=== PATIENT | male | born 1940 | race Caucasian/White ===

== ENCOUNTER 2024-03-12 10:42 | Emergency (ER) | payer MEDICARE, BC, SELFPAY ==
[2024-03-12 10:56] VITALS: BP 148/81; PULSE 64; RESP 18; TEMP 36.5; O2SAT 96; BMI 25.8
--- NOTE | 2024-03-12 11:28 | CRLHL7_ITS ---
For Patients: As a result of the Century Cures Act, medical imaging exams and procedure reports are released immediately into your electronic medical record. You may view this report before your referring provider. If you have questions, please contact your health care provider. INDICATION: Injury COMPARISON: 03/08/2020 TECHNIQUE: Single view of the chest and three views of the right ribs FINDINGS: No substantial pleural effusion. No definite focal pulmonary consolidation. A 13 millimeter nodular opacity projects over the left lower lung zone. Normal heart size. Calcified mildly tortuous thoracic aorta. There are osseous degenerative changes. No acute displaced rib fracture is detected. Surgical clips project over the right upper abdominal quadrant. IMPRESSION: No acute displaced rib fracture is detected. A 13 millimeter nodular opacity projects over the left lower lung zone, recommend further evaluation with a nonemergent low-dose noncontrast CT thorax. Dictated by Niko Xavier MD @ 03/12/2024 12:16:51 PM (Electronically Signed)
--- NOTE | 2024-03-12 11:29 | ED.GENADULT ---
HPI - General Adult General Chief complaint: Fall/Minor Trauma Stated complaint: Fell yesterday, chest pain Time Seen by Provider: 03/12/24 11:21 History of Present Illness HPI narrative: This 83-year-old male comes in because of an injury that occurred yesterday. He states that he fell onto a roller hitting his right anterior chest. He did not hit his head or have loss of consciousness. He had distinct pain in this area immediately and now reports generalized discomfort but pain that is much worse when coughing or performing certain movements. He arrives here with normal vital Related Data Home Medications ?Medication ?Instructions ?Recorded ?Confirmed famotidine 40 mg tablet 40 mg PO QDAY 07/11/22 03/12/24 losartan 50 mg tablet 50 mg PO DAILY 07/11/22 03/12/24 simvastatin 20 mg tablet 20 mg PO QHS 07/11/22 03/12/24 Previous Rx's ?Medication ?Instructions ?Recorded ketorolac 10 mg tablet 10 mg PO Q8H 5 days #15 tabs 03/12/24 Allergies Allergy/AdvReac Type Severity Reaction Status Date / Time No Known Drug Allergies Allergy Verified 03/12/24 11:02 Review of Systems Status of ROS: Reports: 10 or more systems reviewed and unremarkable except as noted in History and below Narrative: Constitutional: No fevers, no weight gain or loss. Eyes: No discharge. No vision changes. HENT: No congestion, no sore throat, no ear pain. Cardiovascular: No palpitations. Respiratory: No shortness of breath, no wheezes, no cough. Gastrointestinal: No abdominal pain, no vomiting, no diarrhea. Genitourinary: No dysuria, no hematuria. Musculoskeletal: Normal range of motion. Skin: No rashes, no pruritis. Neurological: No dizziness, weakness, sensory change, speech change. Endo/Heme/Allergies: No bruising or bleeding. No polydipsia. Pysch: no suicidality, no anxiety, no insomnia. All other systems reviewed and are negative. [facility] Medical History (Updated 03/12/24 @ 12:31 by Jer Salcedo MD) High cholesterol ?E78.00 - Pure hypercholesterolemia, unspecified (ICD-10) Hypertension ?I10 - Essential (primary) hypertension (ICD-10) Surgical History (Updated 07/10/22 @ 15:02 by Ally R Krenske ~ RN, RN) History of cholecystectomy ?Z90.49 - Acquired absence of other specified parts of digestive tract (ICD-10) Hx laparoscopic cholecystectomy (03/18/13) ?Z90.49 - Acquired absence of other specified parts of digestive tract (ICD-10) H/O hernia repair (05/05/18) ?Z98.890 - Other specified postprocedural states (ICD-10) ?Z87.19 - Personal history of other diseases of the digestive system (ICD-10) 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) ?Z96.652 - Presence of left artificial knee joint (ICD-10) Social History (Updated 07/11/22 @ 10:41 by Jesica Garcia ~ [facility], [facility]) Narrative: enjoys polJoules Clothing dancing Smoking Status: Never smoker Do you use any of these nicotine containing products: None Second hand tobacco smoke exposure: No Are you now , , , , never or living with a partner: Social isolation score (0-1 are the most socially isolated patients): 1 Exam Narrative: Exam Narrative: Constitutional: Well-developed, well-nourished, no acute distress. HEENT: Normocephalic, atraumatic. Neck: Normal range of motion. Nontender. Supple. Heart: Regular. No murmurs. Normal rate. Intact distal pulses. Lungs: Clear to auscultation. No wheezes, rhonchi, or rales. Chest: No external sign of injury or bruising. Distinct tenderness in the right anterior ribs. Abdomen: Normal bowel sounds. Nontender. No rebound tenderness. Genitalia: Deferred. Back: No midline tenderness. Normal range of motion. Extremities: Normal range of motion. No injury. Skin: Intact. No rash. Warm. No erythema or pallor. Neurologic: No altered sensation. No weakness. Alert and oriented. Psychiatric: No suicidality. No anxiety or depression. No insomnia. Nursing notes and vitals signs are reviewed. Const: Vital Signs, click to edit/add: Vital Signs - 24 hr 03/12/24 10:56 Temperature 97.7 F Pulse Rate [Right Pulse Oximeter] 64 Respiratory Rate 18 Blood Pressure [Ri ght Upper Arm] 148/81 H Pulse Oximetry 96 Oxygen Delivery Me thod Room Air Course Vital Signs Vital signs: Initial Vital Signs Temperature 97.7 F 03/12/24 10:56 Temperature Source Temporal Artery Scan 03/12/24 10:56 Pulse Rate 64 03/12/24 10:56 Pulse Rhythm Regular 03/12/24 10:56 Pulse Strength 3+ Normal 03/12/24 10:56 Respiratory Rate 18 03/12/24 10:56 Blood Pressure 148/81 H 03/12/24 10:56 Blood Pressure Mean 103 03/12/24 10:56 Blood Pressure Position Sitting 03/12/24 10:56 Pulse Oximetry 96 03/12/24 10:56 Oxygen Delivery Method Room Air 03/12/24 10:56 Vital Signs Temperature 97.7 F 03/12/24 10:56 Pulse Rate 64 03/12/24 10:56 Respiratory Rate 18 03/12/24 10:56 Blood Pressure 148/81 H 03/12/24 10:56 Pulse Oximetry 96 03/12/24 10:56 Oxygen Delivery Method Room Air 03/12/24 10:56 Temperature 97.7 F 03/12/24 10:56 Pulse Rate 64 03/12/24 10:56 Respiratory Rate 18 03/12/24 10:56 Blood Pressure 148/81 H 03/12/24 10:56 Pulse Oximetry 96 03/12/24 10:56 Oxygen Delivery Method Room Air 03/12/24 10:56 Medical Decision Making MDM Narrative Medical decision making narrative: This patient comes in for evaluation of a rib injury that occurred yesterday. Chest x-ray with right rib detail is obtained and shows no evidence of fracture or pneumothorax. There is an incidental finding of a 13 mm nodule in the left lower long. I did inform the patient regarding this and recommended follow-up imaging in the future. The patient is okay to be discharged home. I did provide a prescription for Toradol. Imaging Data Chest x-ray: Radiologist's impression: No acute displaced rib fracture is detected. A 13 millimeter nodular opacity projects over the left lower lung zone, recommend further evaluation with a nonemergent low-dose noncontrast CT thorax. ECG Data Attestation: I personally reviewed and interpreted this ECG as follows: Interpretation: Normal sinus rhythm. Rate is 59 beats per minute. There are no ST or T-wave abnormalities. Discharge Plan Discharge Clinical Impression: Contusion of rib on right side Additional Instructions: Take medication as needed and indicated. Increase activity as tolerated. Follow up with MD return if worsening. Prescriptions: New ketorolac 10 mg tablet 10 mg PO Q8H 5 Days Qty: 15 0RF No Action losartan 50 mg tablet 50 mg PO DAILY simvastatin 20 mg tablet 20 mg PO QHS famotidine 40 mg tablet 40 mg PO QDAY Follow Up/Referrals: Jacqueline Perea DO [Primary Care Provider] - Stand Alone [facility]
--- OUTSIDE RECORDS SUMMARY | 2024-03-12 11:38 | XMS_ITS | Continuity of Care Document ---
Author Name [facility] Organization [facility] Care Team Providers Care Chef Assistant Name Role Phone [facility] Unavailable Unavailable Problems Combined list of problems from Department of [facility] and [facility] facilities. It does not include entries that were removed or entered in error. 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 Medication Details Route Status Patient Instructions Prescription Expires Prescription Number Last Dispense Date Ordering Provider Order Date Order Qty Source CARBOXYMETH YLCELLULOSE NA 0.5% SOLN,OPH INSTILL 1 DROP IN BOTH EYES FOUR TIMES A DAY NEEDED FOR DRY EYES OPHTHA LMIC ACTIVE 10/22/2024 [id number] DESIREE GALEANO 2023 15 [facility] MULTIVIT/OP HTH AREDS2/LUTE IN/ZEAXANTH IN CAP/TAB TAKE 1 CAP/TAB BY MOUTH TWICE A DAY FOR EYE HEALTH ORAL ACTIVE 10/22/2024 [id number] DESIREE GALEANO 2023 120 [facility] MULTIVIT/OP HTH AREDS2/LUTE IN/ZEAXANTH IN CAP/TAB TAKE 1 CAP/TAB BY MOUTH TWICE A DAY FOR EYE HEALTH ORAL DISCONT INUED 10/13/2023 [id number] DESIREE GALEANO 2022 240 [facility] Immunizations Combined list of available immunizations from the Department of [facility] and [facility] facilities. Immunization Series Date Given Administered By Site Reaction Lot Number CVX Code Drug Assisted Living Director Status Comments Source ZOSTER RECOMBINANT 2 2022 ARNALDO DUNBAR LEFT DELTO ID [id number] 187 complet ed @@ ENTER DILUENT LOT# HERE KWAKU REINA COVID-19 (MODERNA), MRNA, LNP-S, PF, 50 MCG/0.5 ML (AGES 12+ YEARS) 2022 312 complet ed [facility] RSV, RECOMBINANT, PROTEIN SUBUNIT RSVPREF, ADJUVANT RECONSTITUTED , 0.5 ML, PF 2022 303 complet ed [facility] INFLUENZA VACCINE, QUADRIVALENT, ADJUVANTED 2022 205 complet ed [facility] TDAP 2022 115 complet [facility] COVID-19 (PFIZER), MRNA, LNP-S, BIVALENT, PF, 30 MCG/0.3 ML DOSE 2021 300 complet ed [facility] INFLUENZA VACCINE, QUADRIVALENT, ADJUVANTED 2021 205 complet ed [facility] COVID-19 (PFIZER), MRNA, LNP-S, PF, 30 MCG/0.3 ML DOSE 2020 208 complet ed [facility] INFLUENZA VACCINE, QUADRIVALENT, ADJUVANTED 2020 205 complet ed [facility] COVID-19 (PFIZER), MRNA, LNP-S, PF, 30 MCG/0.3 ML DOSE 2020 208 complet ed [facility] COVID-19 (120 Sports), MRNA, LNP-S, PF, 30 MCG/0.3 ML DOSE 2020 208 complet ed [facility] INFLUENZA VACCINE, QUADRIVALENT, ADJUVANTED 2019 205 complet ed [facility] ZOSTER RECOMBINANT 2019 187 complet ed [facility] INFLUENZA, TRIVALENT, ADJUVANTED 2018 168 complet ed [facility] INFLUENZA, TRIVALENT, ADJUVANTED 2017 168 complet ed [facility] INFLUENZA, TRIVALENT, ADJUVANTED 2016 168 complet ed [facility] INFLUENZA, HIGH DOSE SEASONAL 2014 135 complet ed [facility] PNEUMOCOCCAL CONJUGATE PCV 13 2014 133 complet ed [facility] INFLUENZA, HIGH DOSE SEASONAL 2013 135 complet ed [facility] INFLUENZA, SEASONAL, INJECTABLE 2012 141 complet ed [facility] INFLUENZA, SEASONAL, INJECTABLE 2010 141 complet ed [facility] ZOSTER LIVE 2010 121 complet ed [facility] TDAP 2010 115 complet ed [facility] ZOSTER LIVE 2010 121 complet ed [facility] PNEUMOCOCCAL POLYSACCHARID E PPV23 2009 33 complet ed [facility] NOVEL INFLUENZA-H1N 1-09 2009 127 complet ed [facility] INFLUENZA, SEASONAL, INJECTABLE 2007 141 complet ed [facility] Encounters Combined list of: 1) Encounters from Department of [facility] facilities going back up to thelast 18 months. 2) Encounters from the Department of [facility] facilities going back up to 280 months. Location Location Details Encounter Type Encounter Number Reason For Visit Attending Provider ADM Date DC Date Status Disposition Source [place] [facility] OFFICE O/P EST MOD 30-39 MIN [id number] Diagnos is: ICD-10- CM H35.371 Puckeri ng of macula, right eye<br/ > FROYLAN,STEW ART J 10/12 [facility] [place] [facility] Outpatient Encounter [id number] 02/04 [facility] [place] [facility] Outpatient Encounter [id number] 02/20 [facility] [place] [place] ADMIN [id number] Diagnos is: ICD-10- CM Z23 Encount er for immuniz ation<b r/> POPLIN,BONNIE INE D 02/26 [facility] Outpatient Encounter [id number] 03/12 [facility] [place] [facility] OFF[facility] O/P EST MOD 30 MIN [id number] Diagnos is: ICD-10- CM H35.341 Macular cyst, hole, or pseudoh ole, right eye<br/ > LAURA GALEANO 10/21 [facility]
--- OUTSIDE RECORDS SUMMARY | 2024-03-12 11:39 | XMS_ITS | Clinical Summary ---
Author Organization [facility] Address [place], [place] [address] Care Team Providers Care Academic Computing Director Name Role Phone Jacqueline Perea Primary Care Provider Allergies No known active allergies Medications Medication Sig Dispensed Refills Start Date End Date Status multivitamin (MVI) tablet Take 1 tablet by mouth once daily. 0 07/17/2012 Active brimonidine (ALPHAGAN) 0.2 % ophthalmic solution 12/19/2017 Activ e calcium carbonate (CALTRATE) 600 mg calcium (1,500 mg) tablet Take 1 Tablet (600 mg) by mouth 2 times daily with meals. 180 Tablet 3 09/23/2020 Active fluocinonide 0.05 TOPICAL (LIDEX) 0.05 % external solutionIndications: Dermatitis Apply topically to affected area(s) two times daily. Apply to scalp as needed 60 mL 02/04/2023 Active triamcinolone (ARISTOCORT) 0.1 % ointmentIndications: Dermatitis Apply topically to affected area(s) two times daily. 30 g 1 02/04/2023 Active carbamide peroxide (DEBROX) 6.5 % otic solutionIndications: Impacted cerumen of right ear Place 5 Drops into right ear one time if needed (Use as needed) for up to 1 dose. 15 mL 02/04/2023 Active doxycycline monohydrate 100 mg capsule TAKE ONE CAPSULE BY MOUTH TWICE A DAY FOR 21 DAYS 11/06/2023 Active pantoprazole (PROTONIX) 20 mg tabletIndications:Ot her acute gastritis without hemorrhage TAKE 1 TABLET (20 MG) BY MOUTH ONCE DAILY BEFORE A MEAL. 30 Tablet 11/11/2023 Active losartan (COZAAR) 50 mg tabletIndications:HT N (hypertension) Take 1 Tablet (50 mg) by mouth once daily. 90 Tablet 4 12/02/2023 Active sildenafiL, pulm.hypertension, (REVATIO) 20 mg tabletIndications:Er ectile dysfunction of organic origin TAKE 2 TO 4 TABLETS 30 MINUTES PRIOR TO INTERCOURSE 16 Tablet 2 12/02/2023 Active simvastatin (ZOCOR) 20 mg tabletIndications:Mi xed hyperlipidemia Take 1 Tablet (20 mg) by mouth at bedtime. 90 Tablet 4 12/02/2023 Active famotidine (PEPCID) 40 mg tabletIndications:Ot her acute gastritis without hemorrhage,Chronic throat clearing Take 1 Tablet (40 mg) by mouth once daily. 90 Tablet 3 12/05/2023 Active Active Problems Problem Noted Date Diagnosed Date Encounter for immunization 09/10/2023 Puckering of macula, right eye 09/10/2023 Melanoma in situ, unspecified site 02/06/2023 S/P knee replacement 06/06/2012 Overview (06/06/2012): L Adenomatous colon polyp 05/12/2012 Overview (06/28/2021): Colonoscopy 04/2012 polyp repeat in 5 years Colonoscopy 05/2021 14mm TA, repeat in 3 years HTN (hypertension) 05/11/2011 Elevated prostate specific antigen (PSA) 011 Mixed hyperlipidemia 08/08/2010 Resolved Problems Problem Noted Date Diagnosed Date Resolved Date skilled nursing (current) use of anticoagulants 06/09/2012 06/27/2012 Acute gastritis without mention of hemorrhage 08/09/19 11 09/15/2014 Encounters Date Type Department Care Team Description 03/12/2024 Nurse Triage [facility] [address] [place] [address] Jacqueline Perea, Chest Injury 01/24/2024 Telephone [facility] [address] [place] [address] Jacqueline Perea, BP READINGS from Last 3 Months Immunizations Name Administration Dates Next Due COVID-19 vaccine (Spinomix-Bio NTech 30mcg/0.3mL) 12YO+ BIVALENT PF, MDV 03/07/2022 COVID-19 vaccine (Spinomix-Bio NTech 30mcg/0.3mL) PF, MDV 07/19/2020,06/28/2020 Influenza A (H1N1), Inactiva nini (Age >=3 Years) 05/28/2009 Influenza, High-dose Inactivated 04/06/2015,01/28 Influenza, IIV3 (Age >=3 years) 05/16/2012,04/18,02/06/2008 Influenza, Inactivated AIIV4 (Age 65+ Years) Preserv Free 02/04/2023,03/07/2022,12/28/2020,02/07 Influenza, Inactivated IIV3 (Age 65+ Years) Preserv Free 04/09/2019,02/19/2018,01/25/2017 Pneumococcal Poly,23-Valent (Pneumovax) 04/11/2010 Pneumococcal conj 13-Valent (Prevnar 13) 04/06/2015 RSV, Recombinant ADJ Reconst ituted (Arexvy 120MCG/0.5mL) 02/20/2023 Tdap 02/04/2023,12/22/2010 Zoster (Shingrix-RZV, recombinant) 02/26/2023, Zoster (Zostavax-ZVL, live) 04/18/2011, 1 Family History Medical History Relation Name Comments Other Other No significant hx. Relation Name Status Comments Other Social History Tobacco Use Types Packs/Day Years Used Date Smoking Tobacco: Never Smokeless Tobacco: Never Tobacco Cessation:Counseling Given: Yes Alcohol Use Standard Drinks/Week Comments No 0 (1 standard drink = 0.6 oz pur e alcohol) PHQ-2 Answer Date Recorded PHQ-2 TOTAL SCORE 2 12/02/2023 Social Connections Answer Date Recorded Frequency of Communication with Friends and Fami ly 0 02/04/2023 Financial Resource Strain Answer Date R ecorded Difficulty of Paying Living Expenses 3 02/04/2023 Difficulty of Paying Living Expenses Not on file 02/04/2023 Food Insecurity Answer Date Recorded Worried About Running Out of Food in the Last Ye ar 1 02/04/2023 Transportation Needs Answer Date Record ed Lack of Transportation (Medical) 1 02/04/2023 Housing Stability Answer Date Recorded Unable to Pay for Housing in the Last Year 1 02/04/2023 Sex and Gender Information Value Date Recorded Sex Assigned at Not on file Gender Identity Not on file Sexual Orientation Not on file Obstetrics History Last Filed Vital Signs Vital Sign Reading Time Taken Comments Blood Pressure 147/78 12/02/2023 9:05 AM CDT Pulse 67 12/02/2023 9:05 AM CDT Temperature 36.6 ??C (97.8 ??F) 09/10/2023 9:59 AM CD T Respiratory Rate 12 03/29/2021 9:12 AM DIRECTOR OF MEDICAL SERVICES Oxygen Saturation 96% 12/02/2023 9:05 AM CDT Inhaled Oxygen Concentration - - Weight 83.2 kg (183 lb 6.4 oz) 12/02/2023 9:05 AM CDT Height 171.5 cm (5' 7.5) 12/02/2023 9:05 AM CDT Body Mass Index 28.3 12/02/2023 9:05 AM CDT Plan of Treatment Health Maintenance Due Date Last Done Comments COVID-19 vaccine series ( season) 2023 02/20/2023, 03/07/2022, 01/30/2021, Additional history exists Influenza for age 65+ 12/29/2023 02/04/2023 , 03/07/2022, 12/28/2020, Additional history exists BMI (ht and wt on same day) for age 18+ 12/01/2024 12/02/2023, 09/10/2023, 10/31/2022, Additional history exists Depression screening for age 12+ 12/02/2024 12/03/2023, 12/02/2023, 10/31/2022, Additional history exists Medicare Wellness for age 65+ 12/02/2024, 10/31/2022, 10/24/2020, Additional history exists Tetanus booster 02/04/2033 02/04/2023, 11/28, 12/22/2010 Pneumococcal series for age 65+ Completed 5, 04/11/2010 Tdap Completed 02/04/2023, 12/22/2010 RSV vaccine for adults or Completed 02/20/2023 Zoster (shingles) series for age 50+ Completed 02/26/2023, 11/10/2019, 04/18/2011, Additional history exists Advance Directives Documents on File Type Date Recorded Patient System Development Engineer Expl anation Healthcare Directive 06/08/2013 2:25 PM AM Red ODONNELL, 05/22/13 Care Teams Academic Computing Director Relationship Specialty Start Date End Date Jacqueline Perea DO [address] [place] [address] PCP - General Family Practice 12/22/10
--- OUTSIDE RECORDS SUMMARY | 2024-03-12 11:39 | XMS_ITS | Data Portability ---
Author Organization [place] [facility] Address [address] [place] [address] Care Team Providers Care Pest Control Service Sales Agent Name Role Phone EILEEN ENRIQUEZ Primary Care Provider [phone] Assessment Encounter Date Assessment Date Assessment LastModified by Organization Details LastModified Time 03/29/2022 03/29/2022 81M with elevated PSA His PSA has been elevated to this range for >10 years. He has some variability in his PSAs. ANIBAL shows enlarged prostate and no nodules. Due to overall PSA stability and large prostate on exam, my level of concern is low for a high risk cancer. Recommend annual PSA as long as he has realistic 10 yrs life expectancy Can check PSA with PMD in [place], refer back to Urology if PSA> 10 Reviewed prior urology notes and labs sindi Not available 03/29/2022 12:11:13 Plan of Treatment Reminders Order Date Submit Date Provider Last Modified By Organization Details Last Modified Time Details Appointments None record ed. Lab None record ed. Referral None record ed. Procedures None record ed. Surgeries None record ed. Imaging None record ed. Medication Orders None record ed. Patient TargetsNo targets recorded. Patient InstructionsNo instructions recorded. Reason for Referral None Reported. Results Created Date Observation Date Name Description Value Unit Range Abnormal Flag Note LastModifiedBy Organization Detail LastModifiedTime 03/29/20 22 03/29/2022 bladd er scan (PROC ) No observ ation record ed. BARCODE Not Available 2021 17:38:42 Result Notes None recorded. Problems Name Problem SNOMED Code Status Onset Date Resolution Date Notes Provider Name and Address Organization Details Recorded Time Prostate specific antigen above reference range 428854140 Active 022 Ori pro MD, PHD [address] [facility],[place] [address], [place], [address], [place] [facility] 2 12:09:08 Problem Notes None recorded. Procedures Surgical History Date Name Laterality Status Provider Name and Address Organization Details Recorded Time Bladder Scan completed Jim Das [facility] 03/29/2022 11:51:29 0 Us urine capacity measure completed Not Available [facility] 10/08/2019 20:51:16 5 Prp i/ally init reduc >5 yr completed Not Available [facility] 10/08/2019 20:51:16 Imaging Results Imaging Date Name Status LastModified by Organiz ation Details LastModified Time 03/29/2022 bladder scan (PROC) completed BARCODE Information not available 03/29/2022 17:38:42 Procedure Notes None recorded. Medical Equipment None Reported. Allergies No known drug allergies Medications Name Sig Start Date Stop Date Status Note LastModified by Organization Details LastModified Time losartan 50 mg tablet TAKE 1 TABLET (50 MG) BY MOUTH ONCE DAILY. active Not Available Not Available No t Available famotidine 40 mg tablet TAKE ONE TABLET BY MOUTH ONCE DAILY active Not Available Not Available No t Available pantoprazol e 20 mg tablet,margarita yed release TAKE 1 TABLET (20 MG) BY MOUTH TWO TIMES DAILY BEFORE MEALS. active Not Available Not Available No t Available simvastatin 20 mg tablet TAKE ONE TABLET BY MOUTH AT BEDTIME active Not Available Not Available No t Available fluticasone propionate 50 mcg/actuati on nasal spray,suspe nsion INHALE 2 SPRAYS INTO AFFECTED NOSTRIL(S ) ONCE DAILY. active Not Available Not Available No t Available peg 3350-electr olytes 236 gram-22.74 gram-6.74 gram-5.86 gram solution MIX DRECTED AND DRINK 3 QUARTS THE DAY PRIOR TO COLONOSCO PY AND 1 QUART 6 HOURS PRIOR TO COLONOSCO PY APPOINTME NT. 03/29 completed Not Available Not Available Not Available Vitals Date Recorded Body height Body mass index (BMI) Body weight Provider Name and Address Organization Details Last Updated DateTime 03/29/2022 172.72 cm 26.6 kg/m2 84755.66 g Jim Pippa [place] [facility] 03/29/2022 11:41:33 Social History Question Answer Notes LastModified by Organizat ion Details LastModified Time Tobacco Smoking Status Never Smoker Not Available [facility] 10/08/2019 02:16:52 What Is Your Level Of Alcohol Consumption? Occasional Information not available 03/29/2022 What Is Your Level Of Caffeine Consumption? Moderate Information not available 03/29/2022 Are You Currently Employed? No Information not available 03/29/2022 Recreational Drug Use No Information not available 03/29/2022 Marital Status [email or web address] Informati on not available 10/08/2019 What Was The Date Of Your Most Recent Tobacco Screening? 03/29/2022 Information not available 03/29/2022 What Is Your Relationship Status? Information not available 03/29/2022 Do You Use Any Illicit Or Recreational Drugs? No Information not available 03/29/2022 Has Tobacco Cessation Counseling Been Provided? No Information not available 03/29/2022 Do You Or Have You Ever Used Any Other Forms Of Tobacco Or Nicotine? No Information not available 03/29/2022 Sex: Unknown Functional Status None recorded. Mental Status None recorded. Family History Nothing Reported. Medical History No medical history recorded. Past Encounters Encounter ID Performer Location Encounter Start Date Encounter Closed Date Diagnosis/Indication Diagnosis SNOMED-CT Code Diagnosis ICD10 Code [id number] Ori beauchamp MD, PHD [facility] [address] [id number] 03/29/2022 10:57:14 04/02/2022 11:34:13 Prostate specific antigen above reference range 382318675 R97.20 Health Concerns Section Related Observation LastModified by Organization Detai ls LastModified Time None Recorded Concern Status LastModified by Organization Details LastModified Time None Recorded Advance Directives Directive None Recorded Payers Encounter Date Sequence Insurance Name Policy Number Policy Chaney Covered Member ID Chaney Member ID Guarantor Name 03/29/2022 1 [place] [employer] Isaac Montenegro [id number] Isaac Montenegro 03/29/[address] [facility] [id number] Isaac Montenegro [id number] Isaac Mcgrath Lan Notes Date Note Type Note Provider Name and Address Organization Details Recorded Time 03/29/2022 text/html 81M with elevated PSA Had biopsy by Dr Bess in 2005- [facility]. He denies any recent UTIs, hematuria, or stones. PVR today 2 mL LUTS: FOS ok, noct x 1 ED: [] PSA Vfnuoxi53/9/22: 8.512/ 7.7912/01/11 7.563/19/04 7.34 PMH: HTN, HLPSH: Social Hx:Tob: neverEtOH: denies Occ: retired FamHx:Breast ca- daughterPCa- none Ori Heck MD, PHD [address] [facility],[address], [place], [address], [facility] 03/29/2022 12:11:34
== END 2024-03-12 12:39 | disposition home or self-care (01) ==
PROVIDERS: Emergency Provider Emergency Medicine Emergency Medical Services; PCP Family Medicine
DX: S20.211A Contusion of right front wall of thorax, initial encounter (principal); W01.10XA Fall on same level from slipping, tripping and stumbling with subsequent striking against unspecified object, initial encounter
CPT/HCPCS: 71101; 93005; 97140; 99284

== ENCOUNTER 2024-03-17 08:15 | Outpatient (RCR) | payer MEDICARE, BC, SELFPAY ==
--- NOTE | 2024-02-03 09:14 | PT.OPEX ---
PT [facility] Outpatient Eval PT [facility] Outpatient Eval Start: 02/03/24 07:08 Freq: Status: Active Protocol: Document 02/03/24 07:08 MLS (Rec: 02/03/24 09:12 MLS [id number]) E-signed By Rosalind Soria DPT Physical Therapy Outpatient Evaluation Insurance Information Recert Due Date 05/02/24 Insurance Name Medicare B Medical Diagnosis M70.71 other bursitis of hip, right hip M70.72 other bursitis of hip, left hip Bilateral hip bursitis Treating Diagnosis Bilateral hip bursitis, left worse than right Referring MD Dr. Villela Subjective Subjective Patient is a 83 year old male who presents to physical therapy with signs and symptoms consistent with bilateral hip pain. He states that the pain is worse worse on the left hip. He states that it started about a couple months ago. 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 He uses a stationary bike and does a lot of yardwork regularly. He has not had a cortisone shot. Aggravating factors include: polka dancing, standing, walking, and sitting. Alleviating factors include: nothing at this time. Significant past medical history includes left knee TKA . Patient would like to achieve less pain through physical therapy sessions. 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 Precautions Weight Bearing Status Full Weight Bearing Therapy Limitations/Systems Review Not Limited Objective Other/Pertinent Objective KNEE ROM Grossly tested WNL B HIP ROM Flexion: 95 L, 95 R Internal Rotation: 10 L, 15 R External Rotation 30 L, 30 R Abduction 35 L, 35 R LLE MMT: Hip flexion: R 4/5 L 4/5 Hip abduction: R 4/5 L 4/5 Hip extension: R 4/5 L 4/5 Knee flexion: R 5/5 L 5/5 Knee extension: R 5/5 L 5/5 SPECIAL TEST Valgus Test: negative Varus Test: negative -Zuleta Compression: negative -Hip quadrant test: negative -SARINA: positive on right for pain -FADIR: negative -Trochanteric Bursitis Test: positive B JOINT MOBILITY/PALPATION Left more than right moderate tenderness with palpation of greater trochanteric bursa and abductor insertion TX: Access Code: [email or web address] URL: [email or web address]/ Date: 02/03/2024 Prepared by: Rosalind Soria Exercises - Supine Lower Trunk Rotation - 1 x daily - 7 x weekly - 3 sets - 10 reps - Supine Figure 4 Piriformis Stretch - 1 x daily - 7 x weekly - 3 sets - 10 reps - Supine Hamstring Stretch - 1 x daily - 7 x weekly - 3 sets - 10 reps Functional Test Performed & Score 68/80 A score increase of 6 points shows a significant improvement in lower extremity function. Assessment Assessment/Impression Pt is a 82 year old male who presents with concerns of bilateral hip pain and bursitis. Patient also has notable objective findings including limited ROM, tenderness to palpation, and decreased strength which are also likely contributing to the problem. Patient is a good candidate for skilled therapy to target deficits described above. Skilled PT intervention is necessary for use of therapeutic exercise manual therapy, neuromuscular re- education, gait training, and therapeutic activity. Functional impairments include difficulty with: exercising, driving tractor, walking, standing and ADLs. See appropriate sections of PT eval for complete list of goals and POC. D/C plan and criteria is for pt to achieve the goals as listed below or until max rehab potential is met. Pt was agreeable with plan of care and goals established. Primary Functional Limitations standing walking driving tractor exercising ADLs Plan of Care Rehabilitation Potential Good Physical Therapy Goals Within 10-12 weeks: 1.Pt will demonstrate independence in performance of home exercise program with the use of video and/or handouts in order to optimize functional mobility and reduce risk for re-injury. 2.Pt will demonstrate consistent HEP compliance to ensure progress in reaching established goals during course of care. 3.Patient will be able to drive tractor for 30 minutes without pain. 4.Patient will report pain levels <2/10 with all activities in order to improve functional mobility at home, work and during functional leisure activities. 5.Patient is able to sleep without waking more than one time due to pain in a 6-8 hour time frame. 6.Patient will be able to walk up to one mile without pain. 7.Patient will be able to bend and lift household items from the floor to shoulder height to perform ADLs without pain. 8.Pt will be able to ascend/ descend 1 flight of stairs in order to perform ADLs pain free. 9.Pt will exhibit 5 pt improvement in Lower Extremity Functional Scale measure to demonstrate functional improvement and progress towards goals Coordination/Communication With Referral Source Treatment Plan/Direct Interventions Gait Training,Joint Mobilization,Manual Therapy, Neuromuscular Re-ed, Therapeutic Activities, Therapeutic Exercises, Ultrasound Patient Will Be Discharged From Therapy Independently Progressing Evaluation Billing Untimed Code Treatment Minutes 30 Complexity Low Certification Information Provider Signature Required Yes Provider Signature Shows Agreement With POC & Medical Necessity Physician NPI Number Write NPI# Here Physician Comment/Change : Physician Signature & Date Requested Please Sign/Date Here
== END 2024-06-15 08:40 | disposition home or self-care (01) ==
PROVIDERS: PCP Family Medicine; Visit Provider Orthopaedic Surgery
DX: M70.71 Other bursitis of hip, right hip (principal); M70.72 Other bursitis of hip, left hip; Z51.89 Encounter for other specified aftercare
CPT/HCPCS: 97110; 97140; 97161

== ENCOUNTER 2024-06-12 07:08 | Outpatient (CLI) | payer MEDICARE, BC, SELFPAY ==
--- NOTE | 2024-06-12 08:36 | W.ANESCHARGE ---
Anesthesia Charges Start Date/Time Anesthesia Start Date: 06/12/24 Anesthesia Start Time: 07:52 Stop Date/Time Anesthesia Stop Date: 06/12/24 Anesthesia Stop Time: 08:23 Summary Extremes of Age - Over 70 or under 1: UNDERCOLLAR MAKER Coding CPT Codes CPT Codes: FRIDA LWR INTST NDSC NOS - 26772 ([id number]) P2 - PATIENT W/MILD SYST DISEASE, QX - UNDERCOLLAR MAKER SVC W/ MD MED DIRECTION, QK - HOT PUNCH PRESS OPERATOR 2-4 CNCRNT ANES PROC Additional Codes: Summary - Extremes of Age - Over 70 or under 1: UNDERCOLLAR MAKER ([id number])
--- NOTE | 2024-06-12 09:29 | W.ANESCHARGE ---
Anesthesia Charges Start Date/Time Anesthesia Start Date: 06/12/24 Anesthesia Start Time: 07:52 Stop Date/Time Anesthesia Stop Date: 06/12/24 Anesthesia Stop Time: 08:23 Summary Extremes of Age - Over 70 or under 1: MDA Coding CPT Codes CPT Codes: ANES LWR INTST NDSC NOS - 23019 ([id number]) P2 - PATIENT W/MILD SYST DISEASE, QK - GROCERY CLERK SELLING 2-4 CNCRNT ANES PROC, QX - FAMILY LIFE EDUCATOR SVC W/ MD MED DIRECTION Additional Codes: Summary - Extremes of Age - Over 70 or under 1: MDA ([id number])
== END 2024-06-12 07:09 | disposition home or self-care (01) ==
LOC: OP CLINIC 07:10
PROVIDERS: PCP Family Medicine; Visit Provider Internal Medicine Gastroenterology
DX: Z12.11 Encounter for screening for malignant neoplasm of colon (principal); D12.0 Benign neoplasm of cecum; D12.2 Benign neoplasm of ascending colon; K57.30 Diverticulosis of large intestine without perforation or abscess without bleeding; Z86.0101 Personal history of adenomatous and serrated colon polyps
CPT/HCPCS: 00811; 45380; 45385; 88305; 99100; J2704

== ENCOUNTER 2024-08-17 10:45 | Outpatient (RCR) | payer MEDICARE, BC, SELFPAY ==
--- NOTE | 2024-07-07 13:07 | PT.OPEX ---
PT [place] Outpatient Eval PT [facility] Outpatient Eval Start: 07/07/24 09:49 Freq: Status: Active Protocol: Document 07/07/24 09:49 ARR (Rec: 07/07/24 13:03 ARR [id number]) E-signed By Chica Hodges DPT Physical Therapy Outpatient Evaluation Insurance Information Recert Due Date 10/05/24 Insurance Name Medicare B Medical Diagnosis M70.62 trochanteric bursitis of left hip M70.61 trochanteric bursitis of right hip Treating Diagnosis M25.551 pain in right hip M25.552 pain in left hip M79.604 pain in right leg Referring HAN Chapa ([facility]) Subjective Subjective Had treatment last year for hip pain. The last 2-3 wks hips really hurt. Went polka dancing, maybe overdid it and flared it further. Last year it was on the L side. Now it is on both sides R>L. Got x- rays at [facility] yesterday. noting a little bit of arthritis with spurs. Not bone on bone. Notes he got too lazy over the summer. Plans to do stairs (has 1 flight, 20 steps) every commercial now vs sitting. Does have a stationary bike and treadmill. Had been using a stationary bike for maybe 3x/day for 100 calories maybe 25 minutes. Will crank it up to 5. Feels good after doing it. R LE at times does feel like it wants to buckle, uses counter support at home. -Increases in pain: sitting too long. Walking. Stairs do not bother. -Decreases in pain: resting -Location of pain: Right lateral hip down lateral thigh to lateral knee, can go all the way into the calf. Pain ongoing this far down since Saturday ? prior to Saturday was up into the hip. Pain described as sharp. Left lateral hip. 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 Objective Other/Pertinent Objective Posture: loss of lumbar lordosis. Slight R lateral shift. Palpation: TTP with inc?d sensitivity lateral hips, posterior to greater trochanter. SLS (30 sec): <5 sec ea side with mod pelvic drop on R. Mild on L. Pain flare on R side in SLS Gait: moderate antalgic gait with WB through R LE. Inc?d trunk fwd flexion RANGE OF MOTION: Lumbar ROM: -Flx: fingertips to mid shins no changes in LE pain -Ext: 75% loss of mobility no changes in LE pain LE ROM (R/L): -Hip ER90: 50 R / 40 L -Hip IR90: 30 R / 30 L -Hip flex: 100 R / 100 L -Hip Abd supine: 50 R / 40 L -Knee Ext: lacking nearly 10* From full ext on R STRENGTH: LE Strength (R/L) -Knee flexion: 4/5 bilat -Knee extension 4- R, 4 L SPECIAL TESTS: LE Flexibility (R/L) -Hamstring: + / + -Piriformis: + / + -Prone knee bend: NT -Hip abd: + / + -Hudson Test: +/+ (Done in sidelying) - Gastroc: +/+ Hip (R/L): -SARINA: +/+ -Hip Scour: - /- -FADIR: +/+ Assessment Assessment/Impression Pt is a 84 y/o male who presents with concerns of bilateral hip pain R>L with pain on right extending down into calf. Gradual onset of pain over the last 2-3 wks with significant flare a few days ago after Polka dancing. 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 Uncertain of origin of R LE calf pain, hip does not typically refer this far distal - will need continued assessment to rule out any contribution from lumbar spine . Patient also has notable objective findings including glut weakness, gait abnormalities also likely contributing to the problem. Patient is a good candidate for skilled therapy to target deficits described above. Skilled PT intervention is necessary for use of therapeutic exercise manual therapy, neuromuscular re- education, gait training, and therapeutic activity. Functional impairments include difficulty with: walking, sitting, standing, dancing. See appropriate sections of PT eval for complete list of goals and POC. D/C plan and criteria is for pt to achieve the goals as listed below or until max rehab potential is met. Pt was agreeable with plan of care and goals established. Plan of Care Physical Therapy Goals STG (within 5 visits) 1) Pt will initiate HEP without increased pain/ symptoms 2) Pt will report at least 30% improvement in pain/symptoms since start of PT for return to PLOF 3) Pt will progress to LE strengthening and balance without pain flare in order to improve functional strength LTG (within 10 visits) 1) Pt will be indep with HEP for halfway management of pain/symptoms 2) Pt will report at least 60% improvement in pain/symptoms since start of PT for return to PLOF 3) Pt will report ability to return to Polka dancing with pain flare not exceeding 4/10 4) Pt will report ability to ascend/descend 20 steps at home with minimal pain flare to improve LE strengthening and activity tolerance 5) Pt will demonstrate ability to transition to continued strengthening/mobility at local gym without pain flare to facilitate greater indep mgmt of symptoms Treatment Plan/Direct Interventions Electrical Stimulation,Gait Training,Joint Mobilization, Manual Therapy,Neuromuscular Re-ed,Self-Care/Home Management,Therapeutic Activities,Therapeutic Exercises,Traction (Mechanical ) Frequency/Duration 1x/wk x 10 visits in 90 days Patient Will Be Discharged From Therapy Skills [facility],Independent w/ HEP Evaluation Billing Untimed Code Treatment Minutes 30 Complexity Low Certification Information Initial Certification Date 07/07/24 Ending Certification Date 10/05/24 Provider Signature Required Yes Provider Signature Shows Agreement With POC & Medical Necessity Physician NPI Number Write NPI# Here Physician Comment/Change : Physician Signature & Date Requested Please Sign/Date Here
== END 2024-12-15 23:59 | disposition home or self-care (01) ==
PROVIDERS: PCP Family Medicine; Visit Provider Physician Assistant
DX: M70.61 Trochanteric bursitis, right hip (principal); M70.62 Trochanteric bursitis, left hip; M79.604 Pain in right leg; Z51.89 Encounter for other specified aftercare
CPT/HCPCS: 97012; 97110; 97112; 97140; 97161

== ENCOUNTER 2024-10-17 08:16 | Emergency (ER) | payer MEDICARE, BC, SELFPAY ==
--- OUTSIDE RECORDS SUMMARY | 2023-10-22 08:00 | XMS_ITS | Encounter Summary ---
Author Name [facility] [place] [place] [facility] [place] [place] Address [address] [place] [address] Support Name Relationship Address Phone AYDE VEGA Next of Kin [address] [place] [address] AYDE VEGA Emergency Contact [address] [place] [address] Insurance Providers: All historical and current Section Date Range: From patient's date of to the date document was created. This section includes the names of all active insurance providers for the patient. Insurance Provider Type of Coverage Plan Name Start of Policy Coverage End of Policy Coverage Group Number Member ID Insurance Provider's Telephone Number Policy Chaney's Name Patient's Relationship to Policy Chaney [place] SUPPLEMEN [place] MEDIC ARE SUPPL EMENT Apr 29, 2018 [id number] GARYCHUY RIBEIRO PATIENT [place] MED[place]ARE SUPPLEMEN [place] MEDIC ARE SUPPL EMENT Apr 29, 2018 [id number] CHUY VEGA PATIENT [place] SUPP[place]MEN [place] MEDIC ARE SUPPL EMENT Apr 29, 2018 [id number] GARYCHUY PATIENT MEDICARE (WNR) MEDICARE (M) PART A Mar 29, 2003 PART A [id number] [phone] GARYCHUY PATIENT MEDICARE (WNR) MEDICARE (M) PART B Mar 29, 2003 PART B [id number] [phone] CHUY VEGA PATIENT MEDICARE (WNR) MEDICARE (M) PART A Mar 29, 2003 PART A [id number] [phone] CHUY VEGA PATIENT MEDICARE (WNR) MEDICARE (M) PART B Mar 29, 2003 PART B [id number] [phone] CHUY VEGA PATIENT [place] SUPPLEMEN [place] MEDIC ARE SUPPL EMENT Apr 29, 2018 [id number] [phone] CHUY VEGA PATIENT Selected Encounter This section includes the information on record at [place] for the Encounter. Date/Time Encounter Type Encounter Description Reason Provider Source Oct 22, 2023 01:00 PM OFFICE O/P EST MOD 30 MIN OPHTHALMOLOGY ICD-10-CM H35.341 Macular cyst, hole, or pseudohole, right eye FROYLAN,CLAUDE Kuo Cesar Encounter Template Text not used by [facility] Assessments - Encounter Diagnoses This section includes the primary and secondary diagnoses documented for the Encounter. Date/Time Primary/Secondary Diagnosis Diagnosis Name Provider Source Oct 30, 2023 11:48 AM PRIMARY Macular cyst, hole, or pseudohole, right eye FROYLAN,CLAUDE [facility] Oct 30, 2023 11:48 AM SECONDARY Dry eye syndrome of bilateral lacrimal glands [facility] Oct 30, 2023 11:48 AM SECONDARY Hypermetropia, bilateral [facility] Oct 30, 2023 11:48 AM SECONDARY Nexdtve age-related mclr degn, left eye, intermed dry stage [facility]AN,[facility] Oct 30, 2023 11:48 AM SECONDARY Nexdtve age-related mclr degn, right eye, intermed dry stage [facility] Oct 30, 2023 11:48 AM SECONDARY Presbyopia [facility] Oct 30, 2023 11:48 AM SECONDARY Presence of intraocular lens [facility] Oct 30, 2023 11:48 AM SECONDARY Puckering of macula, right eye [facility] Oct 30, 2023 11:48 AM SECONDARY Unspecified astigmatism, bilateral [facility] Oct 30, 2023 11:48 AM SECONDARY Vitreous degeneration, bilateral [facility] Encounter Notes: All associated encounter notes This section contains the clinical notes associated to the Encounter. Date/Time Encounter Note(s) Provider Source Oct 22, 2023 01:21 PM OPHTHALMOLOGY CONS ULT: LOCAL TITLE: OPHTHALMOLOGY IMAGING [facility] OUTPT CONSULT STANDARD TITLE: OPHTHALMOLOGY CONSULT DATE OF NOTE: OCT 22, 2023@13:21 ENTRY DATE: OCT 22, 2023@13:21:52 AUTHOR: KARAN STOKES EXP COSIGNER: URGENCY: STATUS: COMPLETED Requested test(s) done, OCT of rNFL OU results uploaded to tray server for review. /zara/ JENNIFER MARIN CRA Stave Block Roller Signed: 10/22/2023 13:22 KARAN STOKES [facility] Oct 22, 2023 01:10 PM OPHTHALMOLOGY ATTE NDING NOTE: LOCAL TITLE: OPHTHALMOLOGY CLINIC NOTE STANDARD TITLE: OPHTHALMOLOGY ATTENDING NOTE DATE OF NOTE: OCT 22, 2023@13:10 ENTRY DATE: OCT 22, 2023@13:10:45 AUTHOR: CLAUDE GALEANO EXP COSIGNER: URGENCY: STATUS: COMPLETED LOCAL TITLE: RIDING INSTRUCTOR NOTE STANDARD TITLE: RIDING INSTRUCTOR NOTE DATE OF NOTE: OCT 22, 2023@12:43 ENTRY DATE: OCT 22, 2023@12:43:12 AUTHOR: HOANG ORTIZ EXP COSIGNER: URGENCY: STATUS: COMPLETED Eye Start Exam Patient: CHUY VEGA Sex: MALE SSN: [id number] Birthdate: [birth year] Chief complaint: Denies any vision or eye concerns at this time FULL EXAM/RNFL +glaucoma suspect Eye Medications blink prn both eyes Allergies: Patient has answered NKA No new Allergies. Past Medical History: Hypertension High cholesterol Past eye history: Cataracts : OU Past eye surgeries: Cataract: OU Social History: Alcohol use - No Tobacco use - No Family History: High blood pressure High cholesterol Cancer Heart disease or stroke: Vision: OD:CC(with glasses) OD: 20/20 Vision: OS:CC(with glasses) 0S: 20/25 Current glasses: OD:+0.25 sphX OS:+0.50 +0.95X351 Add: +2.50 Refraction: Manifest: YES OD:+0.25 sphX 20/20 OS:+0.50 +0.72I056 20/25+2 Add: +2.50 Near vision: OD 20: OS 20: OU Confrontational Jordan: Full to finger counting: Right: Yes Left: Yes Extra Ocular Movement: Normal Pupils: Right: Round Left: Round Size: Right: 2.5 Left: 2.5 React to light: Right: Yes Left: Yes Afferent pupil defect: Right:No Grade: Left: No Grade: Intra-ocular pressure (IOP): OD: 12 OS: 14 Applanation Dilation: mydriacyl 1% and neosynephrine OU Sep@12:53 I have reviewed and agree with the microcomputer technician note of today Patient is alert and oriented X3 and mood and affect are appropriate. SLE: External: normal ou Lid/Lash: normal ou Conj/Sclera:clear and quiet ou Cornea: clear ou AC: Deep & quiet ou Iris: normal without RI or defects ou Lens: pciol ou Dilated exam: yes Optic nerve: ppa ou, vC/D:0.2/0.2 Macula:mild atrophy ou, worse od Vessels: normal ou Periphery: Flat, no abnormalities ou Vitreous: pvd ou, no pigment or heme ou rnfl 10/22/23 ou:wnl, artifact from ppa os, stable since 2022 Assessment/Plan: erm with lamellar hole od, nvs followed at [facility] 10/12/22 od:erm and lamellar hole os:no erm/srf/irf continue seeing RCM through community care due for 1 y f/u 02/2024 pciol ou tint prior pvd ou non ex armd areds and hag juliann at prn refract error-hyperopia astig presbyopia RTC:1 y, mr, vtd, mac sooner with changes Total time spent on spent on testing/chart review, exam, discussion, and charting was in excess of 30 minutes. /zara/ CLAUDE GALEANO MD STAFF MANAGER HOME IMPROVEMENT Signed: 10/22/2023 13:38 Receipt Acknowledged By: 10/22/2023 14:16 /es/ CHUY PATEL MD OPHTHALMOLOGY STAFF SURGEON CLAUDE GALEANO [facility] Oct 22, 2023 12:58 PM OPHTHALMOLOGY TECH NICIAN NOTE: LOCAL TITLE: RIDING INSTRUCTOR NOTE STANDARD TITLE: RIDING INSTRUCTOR NOTE DATE OF NOTE: OCT 22, 2023@12:58 ENTRY DATE: OCT 22, 2023@12:58:51 AUTHOR: HOANG ORTIZ COSIGNER: URGENCY: STATUS: COMPLETED Suicide Screen: C-SSRS Screening Hornbeck-Suicide Severity Rating Scale (C-SSRS Screener) 1. Over the past month, have you wished you were or wished you could go to sleep and not wake up? No 2. Over the past month, have you had any actual thoughts of killing yourself? No 3. Over the past month, have you been thinking about how you might do this? Response not required due to responses to other questions. 4. Over the past month, have you had these thoughts and had some intention of acting on them? Response not required due to responses to other questions. 5. Over the past month, have you started to work out or worked out the details of how to kill yourself? Response not required due to responses to other questions. 6. If yes, at any time in the past month did you intend to carry out this plan? Response not required due to responses to other questions. 7. In your lifetime, have you ever done anything, started to do anything, or prepared to do anything to end your life (for example, collected pills, obtained a gun, gave away valuables, went to the roof but didn't jump)? No 8. If YES, was this within the past 3 months? Response not required due to responses to other questions. /zara/ HOANG ORTIZ HEALTH STRUCTURAL BIOLOGIST Signed: 10/22/2023 12:59 HOANG ORTIZ [facility] Oct 22, 2023 12:43 PM OPHTHALMOLOGY TECH NICIAN NOTE: LOCAL TITLE: RIDING INSTRUCTOR NOTE STANDARD TITLE: RIDING INSTRUCTOR NOTE DATE OF NOTE: OCT 22, 2023@12:43 ENTRY DATE: OCT 22, 2023@12:43:12 AUTHOR: HOANG ORTIZ EXP COSIGNER: URGENCY: STATUS: COMPLETED Eye Start Exam Patient: CHUY VEGA Sex: MALE SSN: [id number] Birthdate: [birth year] Chief complaint: Denies any vision or eye concerns at this time FULL EXAM/RNFL +glaucoma suspect Eye Medications blink prn both eyes Allergies: Patient has answered NKA No new Allergies. Past Medical History: Hypertension High cholesterol Past eye history: Cataracts : OU Past eye surgeries: Cataract: OU Social History: Alcohol use - No Tobacco use - No Family History: High blood pressure High cholesterol Cancer Heart disease or stroke: Vision: OD:CC(with glasses) OD: 20/20 Vision: OS:CC(with glasses) 0S: 20/25 Current glasses: OD:+0.25 sphX OS:+0.50 +0.04L346 Add: +2.50 Refraction: Manifest: YES OD:+0.25 sphX 20/20 OS:+0.50 +0.10I040 20/25+2 Add: +2.50 Near vision: OD 20: OS 20: OU Confrontational Jordan: Full to finger counting: Right: Yes Left: Yes Extra Ocular Movement: Normal Pupils: Right: Round Left: Round Size: Right: 2.5 Left: 2.5 React to light: Right: Yes Left: Yes Afferent pupil defect: Right:No Grade: Left: No Grade: Intra-ocular pressure (IOP): OD: 12 OS: 14 Applanation Dilation: mydriacyl 1% and neosynephrine OU Sep@12:53 /zara/ HOANG ORTIZ HEALTH STRUCTURAL BIOLOGIST Signed: 10/22/2023 12:56 HOANG ORTIZ [facility]
--- OUTSIDE RECORDS SUMMARY | 2024-10-17 03:17 | XMS_ITS | Continuity of Care Document ---
Author Name [facility] Organization [facility] Care Team Providers Care Quantitative Analyst Developer Name Role Phone [facility] Unavailable Unavailable Problems Combined list of problems from [facility] and [facility] facilities. It does not include entries that were removed or entered in error. 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 and [facility] facilities.Medications provided include 1) outpatient medications from the last 15 months, and 2) patient-reported medications. Medication Details Route Status Patient Instructions Prescription Expires Prescription Number Last Dispense Date Ordering Provider Order Date Order Qty Source CARBOXYMETH YLCELLULOSE NA 0.5% SOLN,OPH INSTILL 1 DROP IN BOTH EYES FOUR TIMES A DAY NEEDED FOR DRY EYES OPHTHA LMIC ACTIVE 10/22/2024 [id number] 4 DESIREE GALEANO 2023 15 [facility] MULTIVIT/OP HTH AREDS2/LUTE IN/ZEAXANTH IN CAP/TAB TAKE 1 CAP/TAB BY MOUTH TWICE A DAY FOR EYE HEALTH ORAL ACTIVE 10/22/2024 [id number] 5 DESIREE GALEANO 2023 120 [facility] Immunizations Combined list of available immunizations from the [facility] and [facility] facilities. 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 Status Comments Source ZOSTER RECOMBINANT 2 2022 ARNALDO DUNBAR LEFT DELTO ID [id number] 187 complet ed [facility]MINISTE [facility] AT [place], @@ ENTER DILUENT LOT# HERE [facility] COVID-19 (MODERNA), MRNA, LNP-S, PF, 50 MCG/0.5 ML (AGES 12+ YEARS) 2022 312 complet ed HISTORICA L INFORMATI ON - FROM OTHER REGISTRY, [facility] RSV, RECOMBINANT, PROTEIN SUBUNIT RSVPREF, ADJUVANT RECONSTITUTED , 0.5 ML, PF 2022 303 complet ed HISTORICA L INFORMATI ON - FROM OTHER REGISTRY, [facility] INFLUENZA VACCINE, QUADRIVALENT, ADJUVANTED 2022 205 complet ed HISTORICA L INFORMATI ON - FROM OTHER REGISTRY, [facility] TDAP 2022 115 complet ed HISTORICA L INFORMATI ON - FROM OTHER REGISTRY, [facility] COVID-19 ([place]), MRNA, LNP-S, BIVALENT, PF, 30 MCG/0.3 ML DOSE 2021 300 complet ed HISTORICA L INFORMATI ON - FROM OTHER REGISTRY, [facility] INFLUENZA VACCINE, QUADRIVALENT, ADJUVANTED 2021 205 complet ed HISTORICA L INFORMATI ON - FROM OTHER REGISTRY, [facility] COVID-19 ([place]), MRNA, LNP-S, PF, 30 MCG/0.3 ML DOSE 2020 208 complet ed HISTORICA L INFORMATI ON - FROM OTHER REGISTRY, [facility] INFLUENZA VACCINE, QUADRIVALENT, ADJUVANTED 2020 205 complet ed HISTORICA L INFORMATI ON - FROM OTHER REGISTRY, [facility] COVID-19 ([place]), MRNA, LNP-S, PF, 30 MCG/0.3 ML DOSE 2020 208 complet ed HISTORICA L INFORMATI ON - FROM OTHER REGISTRY, [facility] COVID-19 ([place]), MRNA, LNP-S, PF, 30 MCG/0.3 ML DOSE 2020 208 complet ed HISTORICA L INFORMATI ON - FROM OTHER REGISTRY, [facility] INFLUENZA VACCINE, QUADRIVALENT, ADJUVANTED 2019 205 complet ed HISTORICA L INFORMATI ON - FROM OTHER REGISTRY, [facility] ZOSTER RECOMBINANT 2019 187 complet ed HISTORICA L INFORMATI ON - FROM OTHER REGISTRY, [facility] INFLUENZA, TRIVALENT, ADJUVANTED 2018 168 complet ed HISTORICA L INFORMATI ON - FROM OTHER REGISTRY, [facility] INFLUENZA, TRIVALENT, ADJUVANTED 2017 168 complet ed HISTORICA L INFORMATI ON - FROM OTHER REGISTRY, [facility] INFLUENZA, TRIVALENT, ADJUVANTED 2016 168 complet ed HISTORICA L INFORMATI ON - FROM OTHER REGISTRY, [facility] INFLUENZA, HIGH DOSE SEASONAL 2014 135 complet ed HISTORICA L INFORMATI ON - FROM OTHER REGISTRY, [facility] PNEUMOCOCCAL CONJUGATE PCV 13 2014 133 complet ed HISTORICA L INFORMATI ON - FROM OTHER REGISTRY, [facility] INFLUENZA, HIGH DOSE SEASONAL 2013 135 complet ed HISTORICA L INFORMATI ON - FROM OTHER REGISTRY, [facility] INFLUENZA, SEASONAL, INJECTABLE 2012 141 complet ed HISTORICA L INFORMATI ON - FROM OTHER REGISTRY, [facility] INFLUENZA, SEASONAL, INJECTABLE 2010 141 complet ed HISTORICA L INFORMATI ON - FROM OTHER REGISTRY, [facility] ZOSTER LIVE 2010 121 complet ed HISTORICA L INFORMATI ON - FROM OTHER REGISTRY, [facility] TDAP 2010 115 complet ed HISTORICA L INFORMATI ON - FROM OTHER REGISTRY, [facility] ZOSTER LIVE 2010 121 complet ed HISTORICA L INFORMATI ON - FROM OTHER REGISTRY, [facility] PNEUMOCOCCAL POLYSACCHARID E PPV23 2009 33 complet ed HISTORICA L INFORMATI ON - FROM OTHER REGISTRY, [facility] NOVEL INFLUENZA-H1N 1-09 2009 127 complet ed HISTORICA L INFORMATI ON - FROM OTHER REGISTRY, [facility] INFLUENZA, SEASONAL, INJECTABLE 2007 141 complet ed HISTORICA L INFORMATI ON - FROM OTHER REGISTRY, [facility] Encounters Combined list of: 1) Encounters from [facility] facilities going backup to the last 18 months, not all [place] inpatient encounters are included; 2) Encounters from the Department of Defense facilities going backup to 280 months. Location Location Details Encounter Type Encounter Number Reason For Visit Attending Provider ADM Date DC Date Status Disposition Source IFEANYI MARADIAGA [facility] OFFICE O/P EST MOD 30 MIN [id number] Diagnos is: ICD-10- CM H35.341 Macular cyst, hole, or pseudoh ole, right eye FROYLAN,STEW ART J 10/21 [facility] Plan of Care List of future care activities from [facility] facilities. Additional future care activities may be listed in the Assessment and Plan section. Date/Time Care Activity Care Activity Detail Celei ty 10/21/2024 AMBULATORY - SURGERY AMBULATORY - SURGERY [facility]
--- OUTSIDE RECORDS SUMMARY | 2024-10-17 03:17 | XMS_ITS | Continuity of Care Document ---
Author Name [facility] Organization [facility] Care Team Providers Care Claims Supervisor Name Role Phone [facility] Unavailable Unavailable Problems Combined list of problems from [facility] and [facility] facilities. It does not include entries that were removed or entered in error. 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 Medication Details Route Status Patient Instructions Prescription Expires Prescription Number Last Dispense Date Ordering Provider Order Date Order Qty Source CARBOXYMETH YLCELLULOSE NA 0.5% SOLN,OPH INSTILL 1 DROP IN BOTH EYES FOUR TIMES A DAY NEEDED FOR DRY EYES OPHTHA LMIC ACTIVE 10/22/2024 [id number] 4 DESIREE GALEANO 2023 15 [facility] MULTIVIT/OP HTH AREDS2/LUTE IN/ZEAXANTH IN CAP/TAB TAKE 1 CAP/TAB BY MOUTH TWICE A DAY FOR EYE HEALTH ORAL ACTIVE 10/22/2024 [id number] 5 DESIREE GALEANO 2023 120 [facility] Immunizations Combined list of available immunizations from the [facility] and [facility] facilities. 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 Status Comments Source ZOSTER RECOMBINANT 2 2022 ARNALDO DUNBAR LEFT DELTO ID [id number] 187 complet ed [facility] [place] AT [place], @@ ENTER DILUENT LOT# HERE [facility] COVID-19 ([place]), MRNA, LNP-S, PF, 50 MCG/0.5 ML (AGES 12+ YEARS) 2022 312 complet ed HISTORICA L INFORMATI ON - FROM OTHER REGISTRY, [facility] RSV, RECOMBINANT, PROTEIN SUBUNIT RSVPREF, ADJUVANT RECONSTITUTED , 0.5 ML, PF 2022 303 complet ed HISTORICA L INFORMATI ON - FROM OTHER REGISTRY, [facility] INFLUENZA VACCINE, QUADRIVALENT, ADJUVANTED 2022 205 complet ed HISTORICA L INFORMATI ON - FROM OTHER REGISTRY, [facility] TDAP 2022 115 complet ed HISTORICA L INFORMATI ON - FROM OTHER REGISTRY, [facility] COVID-19 ([place]), MRNA, LNP-S, BIVALENT, PF, 30 MCG/0.3 ML DOSE 2021 300 complet ed HISTORICA L INFORMATI ON - FROM OTHER REGISTRY, [facility] INFLUENZA VACCINE, QUADRIVALENT, ADJUVANTED 2021 205 complet ed HISTORICA L INFORMATI ON - FROM OTHER REGISTRY, [facility] COVID-19 ([place]), MRNA, LNP-S, PF, 30 MCG/0.3 ML DOSE 2020 208 complet ed HISTORICA L INFORMATI ON - FROM OTHER REGISTRY, [facility] INFLUENZA VACCINE, QUADRIVALENT, ADJUVANTED 2020 205 complet ed HISTORICA L INFORMATI ON - FROM OTHER REGISTRY, [facility] COVID-19 ([place]), MRNA, LNP-S, PF, 30 MCG/0.3 ML DOSE 2020 208 complet ed HISTORICA L INFORMATI ON - FROM OTHER REGISTRY, [facility] COVID-19 ([place]), MRNA, LNP-S, PF, 30 MCG/0.3 ML DOSE 2020 208 complet ed HISTORICA L INFORMATI ON - FROM OTHER REGISTRY, [facility] INFLUENZA VACCINE, QUADRIVALENT, ADJUVANTED 2019 205 complet ed HISTORICA L INFORMATI ON - FROM OTHER REGISTRY, [facility] ZOSTER RECOMBINANT 2019 187 complet ed HISTORICA L INFORMATI ON - FROM OTHER REGISTRY, [facility] INFLUENZA, TRIVALENT, ADJUVANTED 2018 168 complet ed HISTORICA L INFORMATI ON - FROM OTHER REGISTRY, [facility] INFLUENZA, TRIVALENT, ADJUVANTED 2017 168 complet ed HISTORICA L INFORMATI ON - FROM OTHER REGISTRY, [facility] INFLUENZA, TRIVALENT, ADJUVANTED 2016 168 complet ed HISTORICA L INFORMATI ON - FROM OTHER REGISTRY, [facility] INFLUENZA, HIGH DOSE SEASONAL 2014 135 complet ed HISTORICA L INFORMATI ON - FROM OTHER REGISTRY, [facility] PNEUMOCOCCAL CONJUGATE PCV 13 2014 133 complet ed HISTORICA L INFORMATI ON - FROM OTHER REGISTRY, [facility] INFLUENZA, HIGH DOSE SEASONAL 2013 135 complet ed HISTORICA L INFORMATI ON - FROM OTHER REGISTRY, [facility] INFLUENZA, SEASONAL, INJECTABLE 2012 141 complet ed HISTORICA L INFORMATI ON - FROM OTHER REGISTRY, [facility] INFLUENZA, SEASONAL, INJECTABLE 2010 141 complet ed HISTORICA L INFORMATI ON - FROM OTHER REGISTRY, [facility] ZOSTER LIVE 2010 121 complet ed HISTORICA L INFORMATI ON - FROM OTHER REGISTRY, [facility] TDAP 2010 115 complet ed HISTORICA L INFORMATI ON - FROM OTHER REGISTRY, [facility] ZOSTER LIVE 2010 121 complet ed HISTORICA L INFORMATI ON - FROM OTHER REGISTRY, [facility] PNEUMOCOCCAL POLYSACCHARID E PPV23 2009 33 complet ed HISTORICA L INFORMATI ON - FROM OTHER REGISTRY, [facility] NOVEL INFLUENZA-H1N 1-09 2009 127 complet ed HISTORICA L INFORMATI ON - FROM OTHER REGISTRY, [facility] INFLUENZA, SEASONAL, INJECTABLE 2007 141 complet ed HISTORICA L INFORMATI ON - FROM OTHER REGISTRY, [facility] Encounters Combined list of: 1) Encounters from [facility] Affairs facilities going backup to the last 18 months, not all [place] inpatient encounters are included; 2) Encounters from the Department of Defense facilities going backup to 280 months. Location Location Details Encounter Type Encounter Number Reason For Visit Attending Provider ADM Date DC Date Status Disposition Source IFEANYI MARADIAGA [facility] OFFICE O/P EST MOD 30 MIN [id number] Diagnos is: ICD-10- CM H35.341 Macular cyst, hole, or pseudoh ole, right eye FROYLAN,STEW ART J 10/21 [facility] Plan of Care List of future care activities from [facility] facilities. Additional future care activities may be listed in the Assessment and Plan section. Date/Time Care Activity Care Activity Detail Celei ty 10/21/2024 AMBULATORY - SURGERY AMBULATORY - SURGERY [facility]
--- OUTSIDE RECORDS SUMMARY | 2024-10-17 08:18 | XMS_ITS | Clinical Summary ---
Author Organization [facility] Address [address] [place] [address] Care Team Providers Care Golf Club Weighter Name Role Phone Jacqueline Perea DO Primary Care Provider Medications multivitamin (MVI) tablet Take 1 tablet by mouth once daily. 0 07/18/19 13 Active brimonidine (ALPHAGAN) 0.2 % ophthalmic solution 12/20/19 18 Active calcium carbonate (CALTRATE) 600 mg calcium (1,500 mg) tablet Take 1 Tablet (600 mg) by mouth 2 times daily with meals. 180 Tablet 3 09/24/19 21 Active fluocinonide 0.05 TOPICAL (LIDEX) 0.05 % external solutionIndication s:Dermatitis Apply topically to affected area(s) two times daily. Apply to scalp as needed 60 mL 02/05/20 23 Active triamcinolone (ARISTOCORT) 0.1 % ointmentIndication s:Dermatitis Apply topically to affected area(s) two times daily. 30 g 1 02/05/20 23 Active carbamide peroxide (DEBROX) 6.5 % otic solutionIndication s:Impacted cerumen of right ear Place 5 Drops into right ear one time if needed (Use as needed) for up to 1 dose. 15 mL 02/05/20 23 Active doxycycline monohydrate 100 mg capsule TAKE ONE CAPSULE BY MOUTH TWICE A DAY FOR 21 DAYS 11/06/19 24 Active pantoprazole (PROTONIX) 20 mg tabletIndications: Other acute gastritis without hemorrhage TAKE 1 TABLET (20 MG) BY MOUTH ONCE DAILY BEFORE A MEAL. 30 Tablet 11/11/19 24 Active losartan (COZAAR) 50 mg tabletIndications: HTN (hypertension) Take 1 Tablet (50 mg) by mouth once daily. 90 Tablet 4 12/02/19 24 Active sildenafiL, pulm.hypertension, (REVATIO) 20 mg tabletIndications: Erectile dysfunction of organic origin TAKE 2 TO 4 TABLETS 30 MINUTES PRIOR TO INTERCOURSE 16 Tablet 2 12/02/19 24 Active simvastatin (ZOCOR) 20 mg tabletIndications: Mixed hyperlipidemia Take 1 Tablet (20 mg) by mouth at bedtime. 90 Tablet 4 12/02/19 24 Active famotidine (PEPCID) 40 mg tabletIndications: Other acute gastritis without hemorrhage,Chronic throat clearing Take 1 Tablet (40 mg) by mouth once daily. 90 Tablet 3 12/05/19 24 Active polyethylene glycol-electrolyte (GOLYTELY) 236-22.74-6.74 -5.86 gram suspensionIndicati ons:Encounter for screening colonoscopy Drink 2 liters the day before the procedure and 2 liters 6 hours prior to procedure. 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 S/P knee replacement 06/06/2012 Overview (06/06/2012): L Adenomatous colon polyp 05/12/2012 Overview (06/18/2024): Colonoscopy 04/2012 polyp repeat in 5 years Colonoscopy 05/2021 14mm TA, repeat in 3 years Colonoscopy 05/2024 multiple large TA, repeat in 3 years HTN (hypertension) 05/11/2011 Elevated prostate specific antigen (PSA) 011 Mixed hyperlipidemia 08/08/2010 Resolved Problems Problem Noted Date Diagnosed Date Resolved Date salvage determiner (current) use of anticoagulants 06/09/2012 06/27/2012 Acute gastritis without mention of hemorrhage 08/09/19 11 09/15/2014 Immunizations Immunization Administration Dates Next Due COVID-19 vaccine (PROFICIO 30mcg/0.3mL) 12YO+ BIVALENT PF, MDV 03/07/2022 COVID-19 vaccine (Kamelio NTech 30mcg/0.3mL) PF, MDV 07/19/2020,06/28/2020 Influenza A (H1N1), Inactiva nini (Age >=3 Years) 05/28/2009 Influenza, High-dose Inactivated 04/28/2024,12/2014,02/24/2014 Influenza, IIV3 (Age >=3 years) 05/16/2012,04/18,02/06/2008 Influenza, [...] 2 12/02/2023 Social Connections Answer Date Recorded Do you often feel lonely or isolated from those around you? 0 05/29/2024 Financial Resource Strain Answer Date R ecorded Difficulty of Paying Living Expenses 3 05/29/2024 Difficulty of Paying Living Expenses Not on file 05/29/2024 Food Insecurity Answer Date Recorded Do you worry your food will run out before you are able to buy more? 1 05/29/2024 Transportation Needs Answer Date Record ed Does lack of transportation keep you from medica l appointments? 1 05/29/2024 Does lack of transportation keep you from work, meetings or getting things that you need? 1 05/29/2024 Housing Stability Answer Date Recorded What is your housing situation today? 1 05/29/2024 Utilities Answer Date Recorded Do you have trouble paying f or utilities (for example, heat, electricity, water, phone)? 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 Not on file Not on file Obstetrics History Last Filed Vital Signs Vital Sign Reading Time Taken Comments Blood Pressure 138/81 06/03/2024 10:22 AM NUCLEAR MONITORING TECHNICIAN Pulse 75 06/03/2024 10:22 AM NUCLEAR MONITORING TECHNICIAN Temperature 36.6 C (97.8 F) 09/10/2023 9:59 AM CDT Respiratory Rate 12 03/29/2021 9:12 AM NUCLEAR MONITORING TECHNICIAN Oxygen Saturation 96% 06/03/2024 10:22 AM NUCLEAR MONITORING TECHNICIAN Inhaled Oxygen Concentration - - Weight 83.5 kg (184 lb) 06/03/2024 10:22 AM NUCLEAR MONITORING TECHNICIAN Height 171.5 cm (5' 7.5) 12/02/2023 9:05 AM CDT Body Mass Index 28.39 12/02/2023 9:05 AM CDT Plan of Treatment Health Maintenance Due Date Last Done Comments COVID-19 vaccine series ( season) 2024 04/15/2024, 02/20/2023, 03/07/2022, Additional history exists BMI (ht and wt on same day) for age 18+ 12/01/2024 12/02/2023, 09/10/2023, 10/31/2022, Additional history exists Depression screening for age 12+ 12/02/2024 12/03/2023, 12/02/2023, 10/31/2022, Additional history exists Medicare Wellness for age 65+ 12/02/2024 12/02/2023, 10/31/2022, 10/24/2020, Additional history exists Tetanus booster 02/04/2033 02/04/2023, 11/28, 12/22/2010 Pneumococcal series for age 50+ Completed 04/06/2015, 04/11/2010 Tdap Completed 02/04/2023, 12/22/2010 RSV vaccine for adults or Completed 02/20/2023 Zoster (shingles) series for age 50+ Completed 02/26/2023, 11/10/2019, 04/18/2011, Additional history exists Influenza Vaccine Completed 04/28/2024, , 03/07/2022, Additional history exists Hepatitis B series for 19+ Aged Out N o longer eligible based on patient's age to complete this topic Insurance MEDICARE PART B HB ONLY [facility] MEDICARE PB ONLY [facility] Advance Directives Documents on File Type Date Recorded Patient Cable Television Access Coordinator Expl anation Healthcare Directive 06/08/2013 2:25 PM AM Red ODONNELL, 05/22/13 Care Teams Golf Club Weighter Relationship Specialty Start Date End Date Jacqueline Perea DO [address] [place] [address] PCP - General Family Practice 12/22/10
--- OUTSIDE RECORDS SUMMARY | 2024-10-17 08:18 | XMS_ITS | Data Portability ---
Author Organization [place] [facility] Address [address] [place] [address] Care Team Providers Care Principal Examiner Name Role Phone EILEEN ENRIQUEZ Primary Care Provider Assessment Encounter Date Assessment Date Assessment LastModified [...] expectancy Can check PSA with PMD in [place], refer back to Urology if PSA> 10 [...] Time Prostate specific antigen above reference range 701046410 Active 022 Ori pro MD, PHD [address] [address], [place], [address], [place] [facility] 2 12:09:08 Problem Notes None recorded. Procedures Surgical History Date Name Laterality Status Provider Name and Address Organization Details Recorded Time Bladder Scan completed Jim Das [facility] 03/29/2022 11:51:29 0 Us urine capacity measure completed Not Available [facility] 10/08/2019 20:51:16 5 Prp i/ally init reduc >5 yr completed Not Available [facility] 10/08/2019 20:51:16 Imaging Results None recorded. Procedure Notes None recorded. Medical Equipment None [...] Updated DateTime 03/29/2022 172.72 cm 26.6 kg/m2 49327.66 g Jim Das [facility] 03/29/2022 11:41:33 Social History Question Answer Notes LastModified by Organizat ion Details LastModified Time Tobacco Smoking Status Never Smoker Not Available [facility] 10/08/2019 02:16:52 What Is Your Level Of Caffeine Consumption? Moderate Information not available 03/29/2022 Recreational Drug Use No Information not available 03/29/2022 Marital Status you Informati on not available 10/08/2019 What Was The Date Of Your Most Recent Tobacco Screening? 03/29/2022 Information not available 03/29/2022 What Is Your Relationship Status? Information not available 03/29/2022 Has Tobacco Cessation Counseling Been Provided? No Information not available 03/29/2022 Sex: Unknown Functional Status Question Answer Note LastModified by Organizat ion Details LastModified Time Do you use any illicit or recreational drugs? No Information not available 03/29/2022 Do you or have you ever used any other forms of tobacco or nicotine? No Information not available 03/29/2022 What is your level of alcohol consumption? Occasional Information not available 03/29/2022 Are you currently employed? No Information not available 03/29/2022 Mental Status None recorded. Family History Nothing Reported. Medical History No medical history recorded. Past Encounters Encounter ID Performer Location Encounter Start Date Encounter Closed Date Diagnosis/Indication Diagnosis SNOMED-CT Code Diagnosis ICD10 Code Diagnosis Note [id number] Ori beauchamp MD, PHD [facility] [address] [place] [address] 03/29/2022 10:57:14 04/02/2022 11:34:13 Prostate specific antigen above reference range 711363947 R97.20 Health Concerns Section Related Observation LastModified by Organization Detai ls LastModified Time None Recorded Concern Status LastModified by Organization Details LastModified Time None Recorded Advance Directives Directive None Recorded Payers Insurance Date Sequence Insurance Name Policy Number Policy Chaney Covered Member ID Chaney Member ID Guarantor Name 03/29/2022 2 [place] [id number] Isaac Montenegro [id number] Isaac Montenegro 03/29/2022 1 [place]: [employer] [facility] Isaac Montenegro [id number] Isaac Mcgrath Lan 03/29/2022 OPT - [place] [facility] Isaac Mcgrath Lan [id number] Isaac Mcgrath Lan Notes Date Note Type Note Provider Name and Address Organization Details Recorded Time 03/29/2022 text/html 81M with elevated PSA Had biopsy by Dr Bess in 2005- [facility]. He denies any recent UTIs, hematuria, or stones. PVR today 2 mL LUTS: FOS ok, noct x 1 ED: [] PSA Ntptbic49/9/22: 8.512/ 7.7912/01/11 7.563/19/04 7.34 PMH: HTN, HLPSH: Social Hx:Tob: neverEtOH: denies Occ: retired FamHx:Breast ca- daughterPCa- none Ori Heck MD, PHD [address], [place], [address], [facility] 03/29/2022 12:11:34
--- OUTSIDE RECORDS SUMMARY | 2024-10-17 08:18 | XMS_ITS ---
Author Name Interface, [id number] lity Address [address] [place] [address] Organization [facility] Address [address] [place] [address] Care Team Providers Care Ergonomics Consultant Name Role Phone Talia Briceno Unavailable Unavailab le Allergies and Adverse Reactions Medication/Group Name Reaction Severity Date No known allergies Plan Date Type Value 12/03/2022 APPOINTMENT POST OP 10 MIN Reason for Visit POST OP 10 MIN Encounters Date Name 12/03/2022 Melanoma in situ Medications Date Name Route Dose Frequency Instructions Start Date End Date Status Simvastatin Oral active Losartan Oral act artem Multivitamins Oral Tablet active Pantoprazole (Sodium) Oral Delayed Release acti ve Calcium Carbonate Oral active Famotidine Oral a ctive Problems Diagnosis Status Date of Diagnosi s Melanoma in situ Active Vital Signs Date Type Value 12/03/2022 Height 68.00 12/03/2022 Pain Scale 0.00
--- OUTSIDE RECORDS SUMMARY | 2024-10-17 08:19 | XMS_ITS | Data Portability ---
Author Organization [place] - [facility], [facility] Address [address] [place] [address] Care Team Providers Care Post Anesthesia Nurse Name Role Phone EILEEN ENRIQUEZ Primary Care [...] expectancy Can check PSA with PMD in [place], refer back to Urology if PSA> 10 [...] Time Prostate specific antigen above reference range [id number] Active 022 Ori pro MD, PHD [address] [address], [place], [address], [place] [facility] 2 12:09:08 Problem Notes None recorded. Procedures Surgical History Date Name Laterality Status Provider Name and Address Organization Details Recorded Time Bladder Scan completed Jim Das [facility] 03/29/2022 11:51:29 0 Us urine capacity measure completed Not Available [facility] 10/08/2019 20:51:16 5 Prp i/ally init reduc >5 yr completed Not Available [facility] 10/08/2019 20:51:16 Imaging Results None recorded. Procedure [...] Updated DateTime 03/29/2022 172.72 cm 26.6 kg/m2 19985.66 g Jim Das [facility] 03/29/2022 11:41:33 Social History Question [...] SNOMED-CT Code Diagnosis ICD10 Code Diagnosis Note [id number] Ori beauchamp MD, PHD [facility] [address] [place] [address] 03/29/2022 10:57:14 04/02/2022 11:34:13 Prostate specific antigen above reference range [id number] R97.20 Health Concerns Section Related Observation LastModified by Organization Detai ls LastModified Time None Recorded Concern Status LastModified by Organization Details LastModified Time None Recorded Advance Directives Directive None Recorded Payers Insurance Date Sequence Insurance Name Policy Number Policy Chaney Covered Member ID Chaney Member ID Guarantor Name 03/29/2022 2 [place] [id number] Isaac Montenegro [id number] Isaac Montenegro 03/29/2022 1 [place] [employer] [facility] Isaac Montenegro [id number] Isaac Mcgrath Lan 03/29/2022 [place] [facility] Isaac Mcgrath Lan [id number] Isaac Mcgrath Lan Notes Date Note Type Note Provider Name and Address Organization Details Recorded Time 03/29/2022 text/html 81M with elevated PSA Had biopsy by Dr Bess in 2005- [facility]. He denies any recent UTIs, hematuria, or stones. PVR today 2 mL LUTS: FOS ok, noct x 1 ED: [] PSA Xipzoex20/9/22: 8.512/ 7.7912/01/11 7.563/19/04 7.34 PMH: HTN, HLPSH: Social Hx:Tob: neverEtOH: denies Occ: retired FamHx:Breast ca- daughterPCa- none Ori Heck MD, PHD [address], [place], [address], [facility] 03/29/2022 12:11:34
--- OUTSIDE RECORDS SUMMARY | 2024-10-17 08:19 | XMS_ITS | CCD ---
Author Name Interface, [id number] lity Address [address] [place] [address] [facility] Address [facility] [address] [address] Care Team Providers Care Rod Puller And Coiler Name Role Phone Talia Briceno Unavailable Unavailab le Allergies and Adverse Reactions Reason for Visit Encounters Medications Problems Social History
[2024-10-17 08:21] VITALS: BP 142/84; PULSE 78; RESP 16; TEMP 36.6; O2SAT 94; BMI 25.8
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
--- OUTSIDE RECORDS SUMMARY | 2024-10-17 08:55 | XMS_ITS | CCD ---
Author Name Interface, C1Erunthu lity Address [address] [place] [address] [address] [facility] Address [facility] [address] [address] Care Team Providers Care Tag Stringer Name Role Phone Talia Briceno Unavailable Unavailab le Allergies and Adverse Reactions Reason for Visit Encounters Medications Problems Social History
--- OUTSIDE RECORDS SUMMARY | 2024-10-17 08:55 | XMS_ITS ---
Author Name Interface, [id number] lity Address [address] [facility] [address] [facility] [address] [place] [address] Organization [facility] Address [address] [facility] [address] [place] [address] Care Team Providers Care Rac Specialist Name Role Phone Talia Briceno Unavailable Unavailab [...]
--- OUTSIDE RECORDS SUMMARY | 2024-10-17 08:55 | XMS_ITS ---
Author Name Interface, [id number] lity Address [address] [facility] [address] [place] [address] Organization [facility] Address [address] [facility] [address] [place] [address] Care Team Providers Care Figurine Maker Name Role Phone Talia Briceno Unavailable Unavailab [...]
--- OUTSIDE RECORDS SUMMARY | 2024-10-17 08:55 | XMS_ITS | CCD ---
Author Name Interface, [id number] lity Address [address] [place] [address] [facility] Address [facility] [address] [address] Care Team Providers Care Ict Educator Name Role Phone Talia Briceno Unavailable Unavailab le Allergies and Adverse Reactions Reason for Visit Encounters Medications Problems Social History
== END 2024-10-17 08:58 | disposition home or self-care (01) ==
PROVIDERS: Emergency Provider Emergency Medicine; PCP Family Medicine
DX: T63.441A Toxic effect of venom of bees, accidental (unintentional), initial encounter (principal)
CPT/HCPCS: 99283; 99284

== ENCOUNTER 2024-12-03 06:27 | Outpatient (CLI) | payer MEDICARE, BC, SELFPAY ==
[2024-12-03 07:01] VITALS: BP 165/78; PULSE 64; RESP 16; O2SAT 97
--- NOTE | 2024-12-03 07:56 | PM.ORPRC ---
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 COMPLICATIONS: None. SPECIMENS: None. DRAINS: None. PREOPERATIVE ANTIBIOTICS: None INDICATIONS: The patient is a 84-year-old with a history of bilateral hip pain secondary to the above diagnoses. Despite appropriate non operative management, they continue to have symptoms. Operative intervention was recommended. The risks, benefits and expected outcomes were discussed in detail. These included but were not limited to: Infection, bleeding, injury to blood vessel or nerve, venous thromboembolism. All questions were answered to their satisfaction. PROCEDURE: The patient was placed in the lateral decubitus position. The right hip was imaged in the long and short axes with the ultrasound transducer. Normal acoustic landmarks were identified. We then sterilely prepped and draped the skin, and used a sterile probe cover with sterile gel. Local anesthesia was established with 10 mL of a solution containing 2 % lidocaine without epinephrine, 0.5% Marcaine without epinephrine and sodium bicarbonate. An 11 blade was used to incise the skin. The Tenex TX 2 micro tip was used to treat the abductor tendon for a total of 3 minutes and 40 seconds. The incision was Steri-Stripped closed. A dry dressing was applied. He was then flipped onto the other side. The left hip was imaged in the long and short axes with the ultrasound transducer. Normal acoustic landmarks were identified. We then sterilely prepped and draped the skin, and used a sterile probe cover with sterile gel. Local anesthesia was established with 10 mL of a solution containing 2 % lidocaine without epinephrine, 0.5% Marcaine without epinephrine and sodium bicarbonate. An 11 blade was used to incise the skin. The Tenex TX 2 micro tip was used to treat the abductor tendon for a total of 3 minutes and 20 seconds. The incision was Steri-Stripped closed. A dry dressing was applied. The patient tolerated the procedure well. There were no apparent complications. They were discharged to home in satisfactory condition. PLAN: The patient may weightbear as tolerates. Ice, Tylenol and ibuprofen can be used for discomfort. They may ramp up activity as the hip will allow. They will follow up in the office in 6 weeks to assess their progress.
[2024-12-03 08:17] VITALS: BP 146/82; PULSE 58; RESP 16; O2SAT 96
== END 2024-12-03 08:18 | disposition home or self-care (01) ==
LOC: US 06:28
PROVIDERS: PCP Family Medicine; Visit Provider Orthopaedic Surgery
DX: M70.61 Trochanteric bursitis, right hip (principal); M70.62 Trochanteric bursitis, left hip
CPT/HCPCS: 27006; 76942; J0665